=== PATIENT | male | born 1970 | race Caucasian/White ===

== ENCOUNTER 2020-07-31 09:12 | Emergency (ER) | payer OTHER ==
[~2020-07-31] VITALS: Ht 175.3 cm; Wt 106.1 kg
[~2020-07-31 09:12] MED LIST: AMARYL2 MG PO; ANASPAZ0.125 MG SL; CELEXA40 MG PO; CIPRO250 M1 PO; FENOFIBRATE160 MG PO; FLAGYL500 MG PO; GLUCOPHAGE1000 MG PO; HUMALOG MI100 UNIT/7; INVOKANA300 MG PO; JANUMET XR 50-1 EAC1 PO; K-DUR 20 MEQ T20 MEQ PO; KOMBIGLYZE XR1 EAC2 PO; LANTUS SQ; OMEPRAZOLE20 MG PO; SIMVASTATIN20 MG PO; TOPROL XL50 MG PO; VIT C 500 MG-E500 MG PO
[2020-07-31] MEDS ORDERED: LORAZEPAM 1 MG T1 MG PO (09:26)
[2020-07-31] MEDS ORDERED: METFORMIN HCL500 M3 PO (09:27)
[2020-07-31] MEDS ORDERED: COZAAR 25 MG TA25 M1 PO (09:27)
[2020-07-31] MEDS ORDERED: NEURONTIN300 MG PO (09:27)
[2020-07-31] MEDS ORDERED: CRESTOR40 MG PO (09:27)
[2020-07-31] MEDS ORDERED: TRESIBA100 UNIT/1 INJECTION (09:28)
[2020-07-31 09:37] LABS: BE -4.7 mmol/L (-2 to +3); PCO2 VENOUS 45.4 mmHg (41.0-51.0); PO2 VENOUS 61.7 mmHg (35.0-45.0)
[2020-07-31 09:40] LABS: ABSOLUTE BASOPHILS 0.1 thou/uL (0.0-0.2); ABSOLUTE EOSINOPHILS 0.3 thou/uL (0.0-0.7); ABSOLUTE LYMPHOCYTES 2.8 thou/uL (0.8-5.3); ABSOLUTE MONOCYTES 0.5 thou/uL (0.0-1.2); ABSOLUTE NEUTROPHILS 6.5 thou/uL (1.6-8.1); BASOPHILS 0.9 %; EOSINOPHILS 2.6 %; HEMATOCRIT 44.9 % (42.0-52.0); HEMOGLOBIN 15.1 gm/dL (14.0-18.0); LYMPHOCYTES 27.6 %; MCH 29.3 pg (26.0-34.0); MCHC 33.6 g/dL (28.0-37.0); MCV 87.1 fL (80.0-100.0); MONOCYTES 4.6 %; MPV 9.3 fl. (7.2-11.1); NUCLEATED RBCS 0 /100WBC; PLATELET COUNT* 236 thou/uL (150-400); POLYS 64.3 %; RBC 5.15 mil/uL (4.50-6.00); RDW-CV 13.1 % (10.5-14.5); WBC 10.1 thou/uL (4.0-11.0)
[2020-07-31 09:48] LABS: CALCIUM 9.3 mg/dL (8.5-10.1); POTASSIUM 5.1 mmol/L (3.5-5.1)
[2020-07-31 09:49] LABS: TOTAL BILIRUBIN 0.3 mg/dL (<0.1-1.0); TOTAL PROTEIN 8.3 g/dL (6.4-8.2)
[2020-07-31 10:31] LABS: URINE BILIRUBIN NEGATIVE (Negative); URINE BLOOD NEGATIVE (Negative); URINE CLARITY CLEAR; URINE COLOR YELLOW; URINE GLUCOSE-RANDOM 3+ (Negative); URINE KETONES NEGATIVE (Negative); URINE LEUKOCYTES NEGATIVE (Negative); URINE NITRITE NEGATIVE (Negative); URINE PROTEIN NEGATIVE (Negative); URINE SPECIFIC GRAVITY 1.015 (1.005-1.030); URINE UROBILINOGEN 0.2 E.U./dl (0.2-1.0)
[2020-07-31 12:07] LABS: CALCIUM 8.5 mg/dL (8.5-10.1); CREATININE 0.8 mg/dL (0.6-1.3); POTASSIUM 4.8 mmol/L (3.5-5.1)
[2020-07-31 12:25] VITALS: BP 120/80
== END 2020-07-31 12:27 | disposition home or self-care (01) ==
LOC: M.ERS 09:12
PROVIDERS: Emergency Medicine
DX: E11.65 Type 2 diabetes mellitus with hyperglycemia (principal); I10 Essential (primary) hypertension; K21.9 Gastro-esophageal reflux disease without esophagitis; E78.5 Hyperlipidemia, unspecified; Z98.890 Other specified postprocedural states; Z79.899 Other long term (current) drug therapy; Z79.4 Long term (current) use of insulin; Z91.048 Other nonmedicinal substance allergy status; Z91.010 Allergy to peanuts; Z88.0 Allergy status to penicillin; Z91.040 Latex allergy status

== ENCOUNTER → 2020-09-17 | Outpatient (CLI) | payer OTHER ==
[~2020-09-17] MED LIST changes: +COZAAR 25 MG TA25 M1 PO; +CRESTOR40 MG PO; +LORAZEPAM 1 MG T1 MG PO; +METFORMIN HCL500 M3 PO; +NEURONTIN300 MG PO; +TRESIBA100 UNIT/1 INJECTION
== END ==
LOC: M.CT 08:36
PROVIDERS: ATTEND Family Medicine
DX: K11.8 Other diseases of salivary glands (principal)

== ENCOUNTER → 2020-09-26 | Outpatient (CLI) | payer OTHER | LOC: M.ULTRA 08:49 | PROVIDERS: ATTEND Family Medicine | DX: K11.8 Other diseases of salivary glands (principal) ==